=== PATIENT | male | born 1965 | race African-American/Black ===

== ENCOUNTER 2023-08-04 15:42 | Inpatient (IN) | payer BC ==
[2023-08-04] MEDS ORDERED: Ondansetron ODT 4 MG TAB PO PRN (16:34)
[2023-08-04] MEDS ORDERED: Ondansetron PF 4 MG/2 ML Vial IVP PRN (16:34)
[2023-08-04] MEDS ORDERED: Acetaminophen 650 MG Suppository PR PRN (16:34)
[2023-08-04] MEDS ORDERED: Ipratropium/Albuterol 3 ML NEB NEB PRN (16:38)
[2023-08-04] MEDS ORDERED: Dextrose 50% Abboject 50 ML SYRINGE SLOW IVP PRN (16:41)
[2023-08-04] MEDS ORDERED: Dextrose 5% in Water 1,000 ML IV PRN (16:41)
[2023-08-04] MEDS ORDERED: Glucagon 1 MG/ML KIT IM PRN (16:41)
[2023-08-04 16:58] LABS: Actual Bicarbonate (HCO3v) 32.2 mEq/L (22-28); Analyzer IN Cardio CS ER; Base Excess 7.9 mEq/L (-2 - +2); Calcium, Ionized (venous) 1.09 mmol/L (1.16-1.32); Chloride (VBG) 97 mmol/L (98-106); Hematocrit-VBG 38 % (42.0-52.0); Potassium (VBG) 2.95 mmol/L (3.70-5.30); Puncture Site Other Site; RapidComm Collect By LAB; Sodium 139 mmol/L (133-146); pH (venous) 7.487 (7.32-7.43)
[2023-08-04 17:00] LABS: Troponin I 0.081 ng/mL (< 0.028)
[2023-08-04 19:26] LABS: Troponin I 0.069 ng/mL (< 0.028)
[2023-08-04] MEDS ORDERED: Ipratropium/Albuterol 3 ML NEB ONE (20:08)
[2023-08-04] MEDS: Ipratropium/Albuterol 3 ML NEB NEB SCH (21:10)
[2023-08-04 21:26] LABS: Hematocrit 34.7 % (38.8-50.0); Hemoglobin 12.5 g/dL (13.5-17.5)
[2023-08-04 21:59] LABS: Troponin I 0.059 ng/mL (< 0.028)
[2023-08-04 22:35] VITALS: BMI 34.9
[2023-08-04] MEDS: Apixaban 5 MG TAB PO SCH (22:57)
[2023-08-04] MEDS: Carvedilol 6.25 MG TAB PO SCH (22:57)
[2023-08-05 03:11] LABS: #Eosinphils 0.1 10x3/uL (0.0-0.5); #Monocytes 0.6 10x3/uL (0.0-1.1); #Neutrophils 12.2 10x3/uL (1.5-8.4); %Basophils 0.3 % (0.0-2.0); %Eosinophils 0.9 % (0.0-6.0); %Lymphocytes 8.1 % (18.0-47.0); %Monocytes 4.3 % (0.0-10.0); %Neutrophils 85.5 % (40.0-75.0); Hematocrit 32.6 % (38.8-50.0); Hemoglobin 11.7 g/dL (13.5-17.5); Mean Corpuscular HGB CONC 35.9 g/dL (32.0-36.0); Mean Corpuscular Hemoglobin 25.4 pg (27.0-33.0); Mean Corpuscular Volume 70.9 fl (81.2-95.1); Mean Platelet Volume 9.2 fl (7.4-10.4); Platelet Count 210 10x3/uL (150-450); RBC Distribution Width 23.6 % (11.5-14.5); White Blood Cell (WBC) Count 14.3 10x3/uL (3.5-10.5)
[2023-08-05 03:19] LABS: Anion Gap 15 mmol/L (10-20); BUN (Urea Nitrogen) 35 mg/dL (8.4-25.7); Calc. Creatinine Clearance 95 mL/min (70-130); Calcium 9.2 mg/dL (7.8-10.44); Carbon Dioxide 31 mmol/L (22-29); Chloride 97 mmol/L (98-107); Estimated GFR 63; Glucose 149 mg/dL (70-105); Potassium 2.9 mmol/L (3.5-5.1); Sodium 140 mmol/L (136-145)
[2023-08-05 03:49] LABS: Microcytosis SLIGHT = 6-15 cells (100X) (0-5/hpf); Polychromasia SLIGHT = 2-3 cells (100X) (0-2/hpf); Target Cells MODERATE= 6-15 cells (100X) (0-1/hpf)
[2023-08-05 03:50] LABS: Anisocytosis SLIGHT = 6-15 cells (100X) (0-5/hpf)
[2023-08-05] MEDS: Potassium Chloride 20 MEQ TAB PO SCH (06:39)
[2023-08-05] MEDS: FLU VACC QS2023-24(6MOS UP)/PF 60 MCG/0.5 ML SYRINGE IM ONE (08:24)
[2023-08-05] MEDS: Apixaban 5 MG TAB PO SCH (08:25)
[2023-08-05] MEDS: Furosemide 40 MG (4 mL) VIAL SLOW IVP SCH ×2 (08:25→14:48)
[2023-08-05] MEDS: Carvedilol 6.25 MG TAB PO SCH (08:25)
[2023-08-05] MEDS: methylPREDNISolone Sod Succ/PF 125 MG/2 ML VIAL IVP SCH (08:25)
[2023-08-05] MEDS: Potassium Chloride 20 MEQ in Premix 1 BAG IVPB SCH (10:51)
[2023-08-05] MEDS: HumaLOG 300 UNITS/3 ML VIAL SC PRN (11:29)
[2023-08-05] MEDS: Senokot S 8.6-50 MG TAB PO SCH (17:45)
[2023-08-05] MEDS: Magnesium Citrate 300 ML BOT PO SCH (17:56)
[2023-08-05] MEDS: Acetaminophen 325 MG TAB PO PRN (21:00)
[2023-08-06 03:31] LABS: #Eosinphils 0.1 10x3/uL (0.0-0.5); #Monocytes 0.9 10x3/uL (0.0-1.1); #Neutrophils 14.5 10x3/uL (1.5-8.4); %Basophils 0.2 % (0.0-2.0); %Eosinophils 0.3 % (0.0-6.0); %Lymphocytes 7.2 % (18.0-47.0); %Monocytes 5.5 % (0.0-10.0); %Neutrophils 85.2 % (40.0-75.0); Hematocrit 31.4 % (38.8-50.0); Hemoglobin 11.3 g/dL (13.5-17.5); Mean Corpuscular Hemoglobin 25.2 pg (27.0-33.0); Mean Corpuscular Volume 70.1 fl (81.2-95.1); Platelet Count 223 10x3/uL (150-450); RBC Distribution Width 23.7 % (11.5-14.5); Red Blood Cell (RBC) Count 4.48 10x6/uL (4.32-5.72)
[2023-08-06 03:37] LABS: Anion Gap 15 mmol/L (10-20); BUN (Urea Nitrogen) 48 mg/dL (8.4-25.7); Calc. Creatinine Clearance 97 mL/min (70-130); Calcium 8.9 mg/dL (7.8-10.44); Carbon Dioxide 29 mmol/L (22-29); Chloride 100 mmol/L (98-107); Estimated GFR 64; Glucose 170 mg/dL (70-105); Potassium 3.6 mmol/L (3.5-5.1); Sodium 140 mmol/L (136-145)
[2023-08-06] MEDS: Doxycycline 100 MG CAP PO SCH (07:52)
[2023-08-06] MEDS: NIFEdipine XL 30 MG ER.TAB PO SCH (07:53)
[2023-08-06] MEDS: Isosorbide Mononitrate 60 MG ER.TAB PO SCH (07:53)
[2023-08-06] MEDS: Senokot S 8.6-50 MG TAB PO SCH (07:53)
[2023-08-06] MEDS: predniSONE 20 MG TAB PO SCH (07:54)
[2023-08-06 08:56] VITALS: TEMP 98.4
[2023-08-06] MEDS ORDERED: Furosemide 40 MG TAB PO SCH (09:00)
[2023-08-06 12:10] VITALS: BP 135/95
[2023-08-07] MEDS ORDERED: Furosemide 40 MG TAB PO SCH (09:00)
== END 2023-08-06 13:37 | disposition home or self-care (01) | DRG 291 ==
LOC: SUATTDRO 15:42 → CSHERS 15:42 → CSHIMCU 16:35
PROVIDERS: ADMIT Family Medicine; ATTEND Family Medicine
DX: I11.0 Hypertensive heart disease with heart failure (principal); I50.43 Acute on chronic combined systolic (congestive) and diastolic (congestive) heart failure; J44.1 Chronic obstructive pulmonary disease with (acute) exacerbation; D57.1 Sickle-cell disease without crisis; E11.9 Type 2 diabetes mellitus without complications; Z79.4 Long term (current) use of insulin; Z79.84 Long term (current) use of oral hypoglycemic drugs; Z79.899 Other long term (current) drug therapy; Z86.711 Personal history of pulmonary embolism; Z90.49 Acquired absence of other specified parts of digestive tract
CPT/HCPCS: 36415; 36416; 71045; 80048; 82805; 84484; 85014; 85018; 85025; 93005; 93306; 94640; 94760; J1815; J1940; J2930; J3480; J7512; J7620

== ENCOUNTER 2023-09-21 13:14 | Outpatient (CLI) | payer BC | END 2023-09-21 13:15 | disposition home or self-care (01) | LOC: CSHCP 13:14 | PROVIDERS: ATTEND Internal Medicine Critical Care Medicine | DX: J44.9 Chronic obstructive pulmonary disease, unspecified (principal) | CPT/HCPCS: 94060; 94726; 94729; 94760 ==